=== PATIENT | male | born 1980 | race Caucasian/White ===

== ENCOUNTER 2021-04-06 17:49 | Observation (INO) | payer SELFPAY ==
[2021-04-06 18:13] LABS: #Basophils 0.1 thou/uL (0.0-0.2); #Eosinphils 0.1 thou/uL (0.0-0.7); #Lymphocytes 1.3 thou/uL (1.20-3.40); #Monocytes 0.5 thou/uL (0.11-0.59); #Neutrophils 7.9 thou/uL (1.40-6.50); %Basophils 0.6 % (0.0-1.0); %Eosinophils 1.5 % (0.0-10.0); %Lymphocytes 13.2 % (21.0-51.0); %Monocytes 4.5 % (0.0-10.0); %Neutrophils 80.2 % (42.0-75.0); Hemoglobin 15.2 g/dL (14.0-18.0); Mean Corpuscular HGB CONC 32.8 g/dL (32.0-36.0); Mean Corpuscular Volume 94.7 fL (78.0-98.0); Mean Platelet Volume 7.2 fL (7.4-10.4); Platelet Count 267 thou/uL (130-400); RBC Distribution Width 12.3 % (11.5-14.5); Red Blood Cell (RBC) Count 4.88 mill/uL (4.70-6.10); White Blood Cell (WBC) Count 9.9 thou/uL (4.8-10.8)
[2021-04-06 18:25] LABS: INR-International Normal Ratio 0.9; Prothrombin Time 12.4 sec (12.0-14.7)
[2021-04-06 18:29] LABS: ALT (SGPT) 72 U/L (8-55); AST (SGOT) 92 U/L (5-34); Albumin 4.4 g/dL (3.5-5.0); Alcohol 280 mg/dL (Less than 10); Alkaline Phosphatase 64 U/L (40-110); Anion Gap 17 mmol/L (10-20); BUN (Urea Nitrogen) 11 mg/dL (8.9-20.6); Bilirubin, Total 0.3 mg/dL (0.2-1.2); Calc. Creatinine Clearance 0 mL/min (70-130); Calcium 8.7 mg/dL (7.8-10.44); Carbon Dioxide 19 mmol/L (22-29); Chloride 109 mmol/L (98-107); Globulin 3.5 g/dL (2.4-3.5); Glucose 102 mg/dL (70-105); Protein, Total 7.9 g/dL (6.0-8.3); Sodium 141 mmol/L (136-145)
[2021-04-06] MEDS ORDERED: traMADol HCl 50 MG TAB PO PRN (21:11)
[2021-04-06] MEDS ORDERED: Cyclobenzaprine 10 MG TAB PO PRN (21:11)
[2021-04-06] MEDS ORDERED: Ibuprofen 600 MG TAB PO SCH (21:15)
[2021-04-06] MEDS ORDERED: Acetaminophen 325 MG TAB PO SCH (21:15)
[2021-04-06] MEDS ORDERED: Dextrose 50% Abboject 50 ML SYRINGE SLOW IVP PRN (21:16)
[2021-04-06] MEDS ORDERED: Dextrose 5% in Water 1,000 ML IV PRN (21:16)
[2021-04-06] MEDS ORDERED: Ondansetron PF 4 MG/2 ML Vial IVP PRN (21:16)
[2021-04-06] MEDS ORDERED: Fentanyl 100 MCG/2 ML VIAL ONE (21:26)
[2021-04-06] MEDS ORDERED: Thiamine 100 MG TAB PO SCH (21:45)
[2021-04-06] MEDS ORDERED: Thiamine HCl 200 MG/2 ML VIAL SLOW IVP SCH (21:45)
[2021-04-06] MEDS ORDERED: levETIRAcetam in NS 100 ML ONE (21:46)
[2021-04-06] MEDS ORDERED: Multivitamins, Adult 10 ML, Folic Acid 1 MG in Dextrose 5 %-0.45 % NaCl 1,000 ML IV SCH (23:00)
[2021-04-06] MEDS: Ibuprofen 200 MG TAB PO SCH (23:40)
[2021-04-06] MEDS: Oxazepam 10 MG CAP PO SCH (23:40)
[2021-04-06] MEDS: Acetaminophen 325 MG TAB PO SCH (23:41)
[2021-04-06] MEDS: traMADol HCl 50 MG TAB PO SCH (23:42)
[2021-04-07 02:55] VITALS: BMI 25.2
[2021-04-07 05:34] LABS: SARS-CoV-2 PCR by NAA Not Detected (NotDetected)
[2021-04-07] MEDS: traMADol HCl 50 MG TAB PO SCH ×4 (05:42→23:16)
[2021-04-07] MEDS: Acetaminophen 325 MG TAB PO SCH ×4 (05:42→23:15)
[2021-04-07] MEDS ORDERED: Oxazepam 10 MG CAP PO SCH (06:00)
[2021-04-07] MEDS: Ibuprofen 200 MG TAB PO SCH ×3 (08:15→23:15)
[2021-04-07] MEDS: Oxazepam 10 MG CAP PO SCH ×3 (08:15→23:15)
[2021-04-07] MEDS: Gabapentin 300 MG CAP PO SCH ×3 (08:17→20:46)
[2021-04-07] MEDS: levETIRAcetam 500 MG TAB PO SCH ×2 (08:17→20:46)
[2021-04-07] MEDS: Thiamine 100 MG TAB PO SCH (08:17)
[2021-04-07] MEDS: Senokot S 8.6-50 MG TAB PO SCH ×2 (08:17→20:46)
[2021-04-07] MEDS: Polyethylene Glycol 3350 17 GM Packet PO SCH (08:18)
[2021-04-07] MEDS ORDERED: Famotidine/PF 20 mg/2ml Vial SLOW IVP SCH (09:00)
[2021-04-07] MEDS ORDERED: Enoxaparin Sodium 40 MG/0.4 ML SYRINGE SC SCH (21:00)
[2021-04-08] MEDS: Acetaminophen 325 MG TAB PO SCH (05:49)
[2021-04-08] MEDS: traMADol HCl 50 MG TAB PO SCH (05:49)
[2021-04-08 07:47] VITALS: BP 121/75; TEMP 97.6
[2021-04-08] MEDS: Ibuprofen 200 MG TAB PO SCH (08:56)
[2021-04-08] MEDS ORDERED: Folic Acid 1 MG TAB PO SCH (09:00)
[2021-04-08] MEDS ORDERED: Multivitamin W/ Minerals 1 TAB PO SCH (09:00)
[2021-04-08] MEDS: Oxazepam 10 MG CAP PO SCH (09:07)
[2021-04-08] MEDS: Senokot S 8.6-50 MG TAB PO SCH (09:08)
[2021-04-08] MEDS: Gabapentin 300 MG CAP PO SCH (09:08)
[2021-04-08] MEDS: Thiamine 100 MG TAB PO SCH (09:08)
[2021-04-08] MEDS: Polyethylene Glycol 3350 17 GM Packet PO SCH (09:09)
== END 2021-04-08 10:40 | disposition home or self-care (01) ==
LOC: ERS 17:49 → SURG B 19:51
PROVIDERS: ADMIT Surgery; ATTEND Surgery
DX: S27.0XXA Traumatic pneumothorax, initial encounter (principal); S22.42XA Multiple fractures of ribs, left side, initial encounter for closed fracture; F10.129 Alcohol abuse with intoxication, unspecified; F14.10 Cocaine abuse, uncomplicated; F12.10 Cannabis abuse, uncomplicated; Z79.899 Other long term (current) drug therapy; Y90.7 Blood alcohol level of 200-239 mg/100 ml; V49.9XXA Car occupant (driver) (passenger) injured in unspecified traffic accident, initial encounter
CPT/HCPCS: 36415; 70450; 71045; 71260; 72125; 74177; 80053; 80307; 84146; 84484; 85025; 85610; 85730; 86850; 86900; 86901; 87635; 93005; 96365; 96366; 96372; 96374; 96375; G0378; G0390; J1650; J1953; J2405; J3010; J3411; J7042; S0028; U0003; U0005